=== PATIENT | female | born 1960 | race Two or more races ===

== ENCOUNTER 2023-06-24 09:44 | Emergency (ER) | payer OTHER ==
[~2023-06-24] VITALS: Ht 165.1 cm; Wt 56.7 kg
[2023-06-24] MEDS ORDERED: ROSUVASTATIN CAL5 MG (09:56)
[2023-06-24] MEDS ORDERED: XELPROS2.5 ML OP (09:56)
[2023-06-24] MEDS ORDERED: ALENDRONATE SOD10 MG PO (09:56)
[2023-06-24] MEDS ORDERED: LACTOBACILLUS ACIDOPHILUS 1 CAP CAP PO STA (10:17)
[2023-06-24 10:38] LABS: HEMATOCRIT 41.5 % (36.0-45.00); HEMOGLOBIN 13.9 g/dL (12.0-15.00); MEAN CELL VOLUME 77.1 fL (80.00-100.00); MEAN CORPUSCULAR HEMOGLOBIN 25.7 pg (27.00-32.0); MEAN CORPUSCULAR HGB CONC 33.4 g/dl (32.0-36.0); PLATELET COUNT 172 K/uL (150-450); RED BLOOD COUNT 5.39 M/uL (4.00-6.00); RED CELL DISTRIBUTION WIDTH 14.8 % (11.5-14.5)
[2023-06-24 11:29] LABS: CALCIUM 8.7 mg/dL (8.5-10.1); CREATININE SERUM 0.66 mg/dL (0.55-1.02); GFR 89.88; POTASSIUM 3.12 mEq/L (3.5-5.1)
[2023-06-24 12:12] LABS: ob NEGATIVE (NEGATIVE)
[2023-06-24] MEDS ORDERED: POTASSIUM BICARBONATE/CIT AC 25 MEQ TABLET.EFF PO STA (12:22)
== END 2023-06-24 12:56 | disposition home or self-care (01) ==
LOC: ER 09:45
PROVIDERS: General Practice
DX: K92.1 Melena (principal)